=== PATIENT | female | born 1965 | race Hispanic/Latino ===

== ENCOUNTER 2023-02-27 09:02 | Emergency (ER) | payer BC ==
[~2023-02-27] VITALS: Ht 170.2 cm; Wt 82.6 kg
[2023-02-27] MEDS ORDERED: KETOROLAC 60 MG VIAL (30MG/ML) IM ONE (10:00)
[2023-02-27 13:12] VITALS: BP 135/76; PULSE 78; RESP 16; O2SAT 99
== END 2023-02-27 13:16 | disposition home or self-care (01) ==
LOC: EDH 09:02
DX: S83.91XA Sprain of unspecified site of right knee, initial encounter (principal); W01.0XXA Fall on same level from slipping, tripping and stumbling without subsequent striking against object, initial encounter; Y93.01 Activity, walking, marching and hiking; Y92.89 Other specified places as the place of occurrence of the external cause; Y99.8 Other external cause status; E11.9 Type 2 diabetes mellitus without complications
CPT/HCPCS: 99284; 73562; 96372; J1885